=== PATIENT | male | born 1985 | race Caucasian/White ===

== ENCOUNTER 2019-02-05 21:04 | Emergency (ER) | payer OTHER ==
[~2019-02-05] VITALS: Ht 172.7 cm; Wt 83.9 kg
[~2019-02-05 21:04] MED LIST: AMOXICILLIN875 MG PO; MEDROLDOSEPACK PO; TYLENOL WITH CO1 TA1 PO; VICODIN ES TAB1 EACH PO
[2019-02-05] MEDS ORDERED: AUGMENTIN 500-1 EACH PO (21:35)
[2019-02-05] MEDS ORDERED: Magic Mouthwash PO (21:35)
[2019-02-05 21:43] VITALS: BP 125/85
== END 2019-02-05 21:45 | disposition home or self-care (01) ==
LOC: M.ERS 21:04
DX: J03.90 Acute tonsillitis, unspecified (principal)